=== PATIENT | male | born 1990 | race Hispanic/Latino ===

== ENCOUNTER 2019-12-01 14:18 | Emergency (ER) | payer OTHER ==
[2019-12-01 14:27] VITALS: BP 132/82
[2019-12-01] MEDS ORDERED: HYDROcodone/ACETAMINOPHEN 5-325 MG TAB PO ONE (14:30)
[2019-12-01] MEDS ORDERED: TETANUS,DIPHTHERIA TOXOID ADULT 0.5 ML INJ IM ONE (14:30)
[2019-12-01] MEDS ORDERED: DIPHtheria,PERTUSSIS(ACELL),TETANUS VACCINE/PF 0.5 ML VIAL IM ONE (14:46)
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
== END 2019-12-01 15:04 ==
LOC: ED 14:18
DX: S21.151A Open bite of right front wall of thorax without penetration into thoracic cavity, initial encounter (principal); Z87.891 Personal history of nicotine dependence; Z79.1 Long term (current) use of non-steroidal anti-inflammatories (NSAID); Z79.2 Long term (current) use of antibiotics; W54.0XXA Bitten by dog, initial encounter; Y93.89 Activity, other specified; Y92.89 Other specified places as the place of occurrence of the external cause; Y99.8 Other external cause status
CPT/HCPCS: 71046; 90471; 90714; 90715; 99283

== ENCOUNTER 2020-01-05 18:51 | Emergency (ER) | payer OTHER ==
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
[2020-01-05 19:23] VITALS: BP 122/68
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
[2020-01-05] MEDS ORDERED: MORPHINE 4 MG/1 ML INJ IV ONE (20:26)
== END 2020-01-05 20:35 | disposition home or self-care (01) ==
LOC: ED 18:51
DX: S83.92XA Sprain of unspecified site of left knee, initial encounter (principal); Z79.2 Long term (current) use of antibiotics; Z79.899 Other long term (current) drug therapy; X50.9XXA Other and unspecified overexertion or strenuous movements or postures, initial encounter; Y93.89 Activity, other specified; Y92.89 Other specified places as the place of occurrence of the external cause; Y99.8 Other external cause status
CPT/HCPCS: 29505; 73562; 96374; 99284; J2270

== ENCOUNTER 2020-11-21 18:58 | Emergency (ER) | payer OTHER ==
[2020-11-21 19:26] VITALS: BP 126/78
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
[2020-11-21] MEDS ORDERED: ONDANSETRON 4 MG/2 ML INJ ONE (21:33)
== END 2020-11-21 21:00 | disposition home or self-care (01) ==
LOC: ED 18:58
DX: S16.1XXA Strain of muscle, fascia and tendon at neck level, initial encounter (principal); S80.12XA Contusion of left lower leg, initial encounter; R07.89 Other chest pain; Z79.899 Other long term (current) drug therapy; Z98.890 Other specified postprocedural states; Z88.2 Allergy status to sulfonamides; V49.49XA Driver injured in collision with other motor vehicles in traffic accident, initial encounter; Y92.410 Unspecified street and highway as the place of occurrence of the external cause; Y93.89 Activity, other specified; Y99.8 Other external cause status
CPT/HCPCS: 71046; 72040; 73590; 99283; J2405